=== PATIENT | female | born 1990 | race Caucasian/White ===

== ENCOUNTER → 2017-12-21 | Outpatient (CLI) | payer OTHER ==
[2017-12-21] MEDS: ALBUTEROL SULFATE 2.5 MG/3 ML NEBU. NEB (10:43)
== END | disposition home or self-care (01) ==
LOC: PF 10:14
DX: M47.892 Other spondylosis, cervical region (principal)
CPT/HCPCS: 71046; 72040; 94060; 94640; J7613